=== PATIENT | female | born 1995 | race Caucasian/White ===

== ENCOUNTER 2020-04-03 21:33 | Emergency (ER) | payer BC, OTHER ==
[~2020-04-03] VITALS: Ht 154.9 cm; Wt 76.2 kg
[2020-04-03 21:43] VITALS: BP_SYST 138
[2020-04-03 23:42] VITALS: BP_SYST 138
== END 2020-04-03 23:42 | disposition home or self-care (01) ==
LOC: SED 21:33
DX: S82.201A Unspecified fracture of shaft of right tibia, initial encounter for closed fracture (principal); W01.0XXA Fall on same level from slipping, tripping and stumbling without subsequent striking against object, initial encounter; Y93.02 Activity, running; Y92.89 Other specified places as the place of occurrence of the external cause; Y99.8 Other external cause status
CPT/HCPCS: 73564; 81025; 99283